=== PATIENT | male | born 1965 | race Caucasian/White ===

== ENCOUNTER 2018-09-20 23:38 | Emergency (ER) | payer BC, OTHER ==
[~2018-09-20] VITALS: Ht 182.9 cm; Wt 147.9 kg
[2018-09-20 23:39] VITALS: BP 164/115
[2018-09-21] MEDS ORDERED: LOVA20TA2 PO (00:20)
[2018-09-21] MEDS ORDERED: AMLO10TA8 PO (00:20)
[2018-09-21] MEDS ORDERED: LOSA1TAB22 PO (00:20)
[2018-09-21] MEDS ORDERED: OXYMETAZOLINE NASAL SPRAY 0.05%, 15ML ONE (00:26)
[2018-09-21] MEDS ORDERED: OXYMETAZOLINE NASAL SPRAY 0.05%, 15ML NAS ONE (00:30)
== END 2018-09-21 01:42 | disposition home or self-care (01) ==
LOC: ED 09-21 01:07
DX: R04.0 Epistaxis (principal)
CPT/HCPCS: 93005; 99283